=== PATIENT | male | born 1985 | race Caucasian/White ===

== ENCOUNTER → 2016-07-20 | Outpatient (CLI) | payer OTHER | LOC: BMCIMAGING 16:06 | PROVIDERS: ATTEND Physician Assistant | DX: M54.5 Low back pain (principal); M25.551 Pain in right hip; M25.552 Pain in left hip; R93.7 Abnormal findings on diagnostic imaging of other parts of musculoskeletal system; M43.28 Fusion of spine, sacral and sacrococcygeal region ==